=== PATIENT | male | born 1950 ===

== ENCOUNTER 2023-03-03 12:18 | Emergency (ER) | payer MEDICARE ==
[~2023-03-03] VITALS: Ht 170.2 cm; Wt 72.7 kg
[2023-03-03] MEDS ORDERED: LIDOCAINE 1% 10 ML VIAL SQ ONE (13:30)
[2023-03-03] MEDS ORDERED: PERTUSS(ACELL),DIPH,TET VAC/PF 0.5 ML SYRINGE IM. ONE (14:30)
[2023-03-03 15:05] VITALS: BP 138/80
== END 2023-03-03 15:07 | disposition home or self-care (01) ==
LOC: EMS 12:18
DX: S61.412A Laceration without foreign body of left hand, initial encounter (principal); W45.8XXA Other foreign body or object entering through skin, initial encounter; Y93.89 Activity, other specified; Y92.89 Other specified places as the place of occurrence of the external cause; Y99.8 Other external cause status
CPT/HCPCS: 99283; 90715; 90471; 12002; J3490

== ENCOUNTER 2023-03-17 11:48 | Emergency (ER) | payer MEDICARE ==
[~2023-03-17] VITALS: Ht 165.1 cm; Wt 75.0 kg
[2023-03-17 11:56] VITALS: BP 122/63
== END 2023-03-17 13:08 | disposition home or self-care (01) ==
LOC: EMS 11:51
DX: S61.419D Laceration without foreign body of unspecified hand, subsequent encounter (principal); Z48.02 Encounter for removal of sutures; X58.XXXD Exposure to other specified factors, subsequent encounter
CPT/HCPCS: 99281; Z7502